=== PATIENT | female | born 2000 | race Two or more races ===

== ENCOUNTER 2024-10-24 12:42 | Emergency (ER) | payer OTHER, SELFPAY ==
[2024-10-24 12:43] VITALS: BMI 36.2
[2024-10-24 13:06] VITALS: BP 147/84; PULSE 91; RESP 18; TEMP 36.9; O2SAT 99
--- NOTE | 2024-10-24 13:12 | XR_ITS ---
Examination: Right hand 2 views Technique :AP lateral right hand 2 views Indications: Injury to the hand today, hand pain Findings: No acute fracture No dislocation No foreign body Impression: Acute fracture
--- NOTE | 2024-10-24 14:24 | EDNOTE_ITS ---
<Statement entered by Jewell Worley MD - 10/28/24 15:23> As co-signing physician, I was present and available for consult prn. I concur with the plan and care as documented by the midlevel provider. Upper Extremity Injury RME/HPI General Chief Complaint: Hand/Wrist Problems Stated Complaint: RIGHT HAND LAC Time Seen by Provider: 10/24/24 13:12 Arrival date/time: 10/24/24 12:42 24-year-old female approximately 31 weeks presents emergency department today for complaints of laceration right hand patient reports he shot open a window and she accidentally cut the palm of her hand patient wants to make sure there is no foreign bodies in her right hand Limitations: no limitations Related Data Allergies Allergy/AdvReac Type Severity Reaction Status Date / Time No Known Allergies Allergy Verified 10/24/24 12:45 Review of Systems Review of Systems Systems Reviewed: All systems reviewed, normal except as documented Constitutional Constitutional: Reports system reviewed and no additional complaints, except as documented, Denies fever(s) and Denies headache(s) Eyes Eyes: Reports system reviewed and no additional complaints, except as documented and Denies blurry vision ENT Ears, Nose, Mouth, and Throat: Reports system reviewed and no additional complaints, except as documented, Denies headache(s), Denies nasal congestion and Denies nasal discharge Cardiovascular Cardiovascular: Reports system reviewed and no additional complaints, except as documented, Denies chest pain and Denies dyspnea Respiratory Respiratory: Reports system reviewed and no additional complaints, except as documented, Denies chest congestion, Denies cough and Denies dyspnea Gastrointestinal Gastrointestinal: Reports system reviewed and no additional complaints, except as documented and Denies abdominal pain Integumentary/Breasts Skin/Breast: Reports system reviewed and no additional complaints, except as documented, Denies rash and Reports wounds (Laceration right hand) Neurologic Neurologic: Reports system reviewed and no additional complaints, except as documented, Reports as per HPI and Denies headache(s) Past Medical History Social History SMOKING STATUS: Never smoker ED Exam General Limitations: Present no limitations General appearance: Present alert and in no apparent distress Head Head exam: Present atraumatic Eye Eye exam: Present normal appearance, PERRL and EOMI ENT ENT exam: Present normal exam, normal oropharynx and mucous membranes moist Neck Neck exam: Present normal inspection, full ROM and trachea midline Chest Chest inspection: Present normal inspection and symmetric chest wall rise Respiratory Respiratory exam: Present normal lung sounds bilaterally Cardiovascular Cardiovascular exam: Present regular rate, normal rhythm and normal heart sounds Abdominal Exam Abdominal exam: Present soft and normal bowel sounds Extremities Exam Extremities exam: Present full ROM, tenderness and normal capillary refill; Absent joint swelling Back Exam Back exam: Present normal inspection and full ROM Neurological Exam Neurological exam: Present alert, oriented X3 and CN II-XII intact Psychiatric Psychiatric exam: Present normal affect and normal mood Skin Skin exam: Present warm, dry and other (Laceration right hand) Course Quality Measures none Orders Category Date Time Status TDap [Obtain Tdap Consent] X1 Care 10/24/24 14:32 Completed Wound Care NOW Care 10/24/24 14:32 Completed XR hand RT 2V Stat Exams 10/24/24 13:12 Completed TET,DIP/PERT AC (Adult)-Tdap [Boostrix Adult (Tdap) Med 10/24/24 14:32 Discontinued Vacc] 0.5 ml IMI .ONCE ONE Vital Signs Vital signs: Vital Signs Temperature 98.4 F 10/24/24 13:06 Pulse Rate 91 10/24/24 13:06 Respiratory Rate 18 10/24/24 13:06 Blood Pressure 147/84 H 10/24/24 13:06 Pulse Oximetry (%) 99 10/24/24 13:06 Oxygen Delivery Method Room Air 10/24/24 13:06 O2 saturation 9 9% room air within the limits Extremity Injury MDM Narrative MDM Narrative:: 24-year-old female approximately 31 weeks presents emergency department today for complaints of laceration right hand patient reports he shot open a window and she accidentally cut the palm of her hand patient wants to make sure there is no foreign bodies in her right hand Imaging obtained no acute emergent findings noted no foreign bodies no fractures Dressing applied laceration is very superficial does not require sutures no evidence of tendon ligamentous injury Initiated ordered Tdap patient reports did not know but then she realized she did have a Tdap Patient discharged home in no distress to follow-up with primary care doctor in the next 24 to 48 hours and for any worsening symptoms to return to the ER immediately Patient data External records reviewed:: [facility] previous records Clinical information provided by:: patient Social determinants that could affect healthcare access:: none Patient has the following chronic illnesses:: None How is presenting disease/condition affected by chronic disease/condition?: no chronic disease Evaluation data The following diagnostics were reviewed and interpreted by me:: radiology exam(s) Lab and/or radiology exams considered but not ordered:: Radiology Interpretation Summary: Reviewed by me no acute fracture or foreign body noted Medications / Prescriptions Medications or Prescriptions considered but not ordered:: Given Medication administrations:: Medication Administration History Discontinued Medications Diphtheria/Tetanus/Acell Pertussis (Diphth,Pertuss(Acell),Tet Vac 0.5 Ml Syr- Adult) 0.5 ml IMi .ONCE ONE Stop: 10/24/24 14:33 Last Admin: 10/24/24 14:54 Dose: Not Given Documented By: TM Non-Admin Reason: Patient Refused Given Consultations Consultation(s) initiated? (list below): No Diagnosis Upper Extremity Injury Differential Diagnosis: other Most likely diagnosis given after review of the tests above:: Laceration Admission Indicated Admission indicated?: not indicated Admission Request Was there a request for admission?: No Disposition Plan Disposition Plan: Discharge Discharge Attestation Discharge Attestation: The patient and all family members were given an opportunity to ask questions and understood the discharge instructions. Discharge instructions specifically effects, indications for sooner follow up or return to the emergency department, and the expected course of current diagnosis. Patient condition: Stable Discharge Plan Plan Patient Disposition: HOME (Self Care) Disposition Comment: Stable Prescriptions/Referrals Referrals: Eriberto Joe MD [Primary Care Provider] - In 1 week Problem List Clinical Impression: Superficial laceration of right hand Patient/Caregiver Discharge Instructions Education Materials: ED Laceration Hand with ... Additional Instructions: Please follow up with your primary care doctor in the next 24-48hrs for any worsening symptoms return here immediately Please inform your RADIOGRAPHER that you did receive a Tdap vaccination today Print Language: Nigerien Stand Alone Forms: [employer] Award Info., Work/School Release, Patient Portal Info Letter Vaccines Vaccines Given During Stay: TDaP [place]/[employer] Supervising Physician PA/TYLER Supervising Physician: Dr. worley
== END 2024-10-24 14:57 | disposition home or self-care (01) ==
PROVIDERS: Emergency Provider Emergency Medicine; PCP Family Medicine
DX: O9A.213 Injury, poisoning and certain other consequences of external causes complicating pregnancy, third trimester (principal); S61.411A Laceration without foreign body of right hand, initial encounter; Z3A.31 31 weeks gestation of pregnancy; Z23 Encounter for immunization; W45.8XXA Other foreign body or object entering through skin, initial encounter
CPT/HCPCS: 73120; 99283